=== PATIENT | female | born 1960 | race Caucasian/White ===

== ENCOUNTER 2018-12-08 13:52 | Inpatient (IN) ==
[2018-12-08] MEDS ORDERED: 0.9 % Sodium Chloride 1,000 ML IVC ONE (14:05)
--- NOTE | 2018-12-08 14:09 | Emergency Department Note ---
Disposition Clinical Impression: Anemia Qualifiers: Anemia type: unspecified type Qualified Code(s): D64.9 - Anemia, unspecified Disposition: Admitted As Inpatient Condition: Fair Instructions: Anemia (ED) Referrals: Amanda Andino APN [Primary Care Provider] - Forms: ED Satisfaction Letter SOB HPI - General Chief Complaint: ED Shortness of Breath/Dyspnea Stated Complaint: short of breath, feet swollen Time Seen by Provider: 12/08/18 13:54 Source: EMS Limitations: no limitations Nursing Notes Reviewed: Yes Vital Signs Reviewed: Yes - History of Present Illness 58-year-old female percents emergency department for evaluation of bronchitis and weakness. Patient states she has been feeling weak for the last 2-3 months. Patient states over the last few days she has had cough and congestion. She denies any chest pain. She does have a known history of COPD and uses oxygen at 4 L nasal cannula continuously. She also uses nebulizers at home. She denies any recent melena or hematochezia. She also denies any history of anemia. She states no history of congestive heart failure but she states many family members have it. She has had no urinary symptoms. She said no abdominal pain. - Related Data Home Medications Medication Instructions Recorded Confirmed Unable To Obtain [Unable to Obtain] 12/08/18 12/08/18 Allergies Allergy/AdvReac Type Severity Reaction Status Date / Time Penicillins Allergy Unknown See Verified 12/08/18 15:08 Comments Review of Systems: Constitutional: [Negative for fever and chills.] HENT: [Negative for congestion.] Eyes: [Negative for discharge.] Respiratory: See history of present illness Cardiovascular: [Negative for chest pain.] Gastrointestinal: [Negative for nausea, vomiting, abdominal pain and diarrhea.] Endocrine: [Negative for excessive thirst,urination] Genitourinary: [Negative for dysuria and frequency.] Musculoskeletal: [Negative for myalgias and arthralgias.] Skin: [Negative for rash.] Neurological: [Negative for dizziness, localized weakness and headaches.] Psychiatric/Behavioral: [Negative for nervous/anxious.] All other systems reviewed and are negative. Past Medical History - Past Medical History Attestation: Yes The following information was validated with the patient. 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 HENT: Head: Normocephalic and atraumatic. Right Ear: External ear normal. Left Ear: External ear normal. Nose: Nose normal. Mouth/Throat: Oropharynx is clear and mucous membranes show dehydration Eyes: Conjunctivae and EOM are normal. Pupils are equal, round, and reactive to light. Right eye exhibits [no] discharge. Left eye exhibits [no] discharge. Neck: Trachea is midline, normal range of motion and [phonation normal]. Neck supple. Cardiovascular: [Regular rhythm], S1 normal, S2 normal, normal heart sounds and intact distal pulses. Exam reveals no gallop and no friction rub. No murmur heard. [Capillary refill is brisk.] [Peripheral pulses are 2+] Pulmonary/Chest: Effort [normal] No stridor. [No] tachypnea. [No] respiratory distress. There are decreased breath sounds. There are rhonchi heard in the upper lobes of the lung. There are no obvious Rales. There are no obvious wheezes Abdominal: Soft. [Bowel sounds are normal]. There exhibits [no] distension and [no] mass. There is no hepatosplenomegaly. There is [no tenderness], [no] CVA tenderness. There is [no rigidity, no rebound, no guarding]. Musculoskeletal: Normal range of motion of uninvolved extremities. There exhibits [no edema]. [ ] Neurological: Patient is alert. Patient displays no atrophy and no tremor. Moves all 4 extremities equally without gross deficit. No cranial nerve deficit and exhibits normal muscle tone. Coordination normal grossly. Skin: Skin is warm and dry. No erythema. No rash noted. Psychiatric: Patient has a [normal mood and affect.] Course Course Narrative: Patient was discussed with Dr. Dominguez on-call for hospitalist nicole Arana and is except the patient for admission. We will admit her to an observation bed with follow-up hemoglobin in the morning and further diagnostic evaluation related to her anemia as an outpatient Discussed diagnosis and further treatment plans with patient and family. Questions addressed. Vital Signs Temperature 98.9 F 12/08/18 13:56 Pulse Rate 109 12/08/18 13:56 Respiratory Rate 16 12/08/18 13:56 Blood Pressure 106/64 12/08/18 13:56 O2 Sat by Pulse Oximetry 100 12/08/18 13:56 Temperature 98.9 F 12/08/18 13:56 Pulse Rate 101 12/08/18 15:57 Respiratory Rate 16 12/08/18 15:57 Blood Pressure 91/59 12/08/18 15:57 O2 Sat by Pulse Oximetry 97 12/08/18 15:57 Oxygen Delivery Oxygen Delivery Nasal Cannula Shortness of Breath/Dyspnea - MDM Narrative Medical decision making narrative: Patient's original presentation suggested COPD exacerbation and anemia but other possibilities would also include PULMONARY EMBOLISM, PULMONARY EDEMA, PNEUMONIA, PNEUMOTHORAX, STATUS ASTHMATICUS, ACUTE RESPIRATORY FAILURE, PLEURAL EFFUSION, HEMOTHORAX, OR ACUTE CORONARY SYNDROME. - Lab Data Lab results reviewed: Yes I reviewed the patient's lab results. Result diagrams: 12/08/18 14:10 12/08/18 14:10 Lab Results 12/08/18 12/08/18 12/08/18 Range/Units 14:06 14:10 14:10 WBC 11.6 H (4.3-11.1) K/mcL RBC 2.04 L (3.82-4.97) M/mcL Hgb 5.5 L* (11.5-15.4) g/dL Hct 17.2 L (35.3-44.9) % MCV 84.3 (83.0-100.0) fL MCH 27.0 L (28.0-33.3) pg MCHC 32.0 (31.6-35.5) g/dL RDW 17.2 H (11.5-14.5) % Plt Count 112 L (140-400) K/mcL MPV 11.9 (9.4-12.4) fL Immature Gran % 1.2 (0-4) % Seg Neutrophils % 83.9 % Lymphocytes % 8.4 % Monocytes % 6.4 % Eosinophils % 0.0 % Basophils % 0.1 % Neutrophils # 9.7 H (1.6-8.9) K/mcL Lymphocytes # 1.0 (0.6-4.6) K/mcL Monocytes # 0.7 (0.0-1.3) K/mcL Eosinophils # 0.0 (0.0-0.6) K/mcL Basophils # 0.0 (0.0-0.2) K/mcL Nucleated RBCs/100 WBC 0.4 H (0) /100 WBC PT 15.1 H (9.4-12.1) Seconds INR 1.3 APTT 25.1 L (26.0-36.0) Seconds ABG pH (7.32-7.45) pH Units ABG pCO2 (35-45) mmHg ABG pO2 (85-104) mmHg ABG HCO3 (21-27) mEq/L ABG Total CO2 (20-26) mEq/L ABG O2 Saturation (95-98) % ABG Base Excess (-2 to 3) mEq/L Sodium 127 L (136-145) mEq/L Potassium 3.6 (3.5-5.1) mEq/L Chloride 88 L (98-107) mEq/L Carbon Dioxide 32 H (23-29) mEq/L BUN 13 (6-20) mg/dL Creatinine 0.48 L (0.60-1.20) mg/dL Est GFR ( Amer) > 60 (> 60) Est GFR (Non-Af Amer) > 60 (> 60) BUN/Creatinine Ratio 27 H (6-26) Glucose 113 H (70-105) mg/dL Calculated Osmolality 265 L (280-300) Lactic Acid (0.5-2.2) mmol/L Calcium 8.5 L (8.6-10.3) mg/dL Total Bilirubin 0.4 (0.3-1.0) mg/dL Direct Bilirubin 0.1 (0.0-0.2) mg/dL Indirect Bilirubin 0.3 (0.0-1.2) mg/dL AST 17 (13-39) Units/L ALT 13 (7-52) Units/L Alkaline Phosphatase 151 H (34-104) Units/L Troponin I < 0.03 (< 0.04) ng/mL B-Natriuretic Peptide (Less than 100) pg/mL Serum Total Protein 6.7 (6.4-8.9) g/dL Albumin 2.6 L (3.5-5.7) g/dL Globulin 4.1 H (2.4-3.5) g/dL Albumin/Globulin Ratio 0.6 L (1.1-2.2) Urine Color (Yellow) Urine Clarity (Clear) Urine pH (5.0-8.0) pH Units Ur Specific [place] (1.010-1.025) Urine Protein (Neg-Trace) mg/dL Urine Glucose (UA) (Normal) mg/dL Urine Ketones (Negative) mg/dL Urine Blood (Negative) Urine Nitrite (Negative) Urine Bilirubin (Negative) Urine Urobilinogen (Normal) mg/dL Ur Leukocyte Esterase (Negative) Ur Culture Indicated? (NO) Stool Occult Blood (Negative) Blood Type Antibody Screen Crossmatch 12/08/18 12/08/18 12/08/18 Range/Units 14:10 14:10 14:35 WBC (4.3-11.1) K/mcL RBC (3.82-4.97) M/mcL Hgb (11.5-15.4) g/dL Hct (35.3-44.9) % MCV (83.0-100.0) fL MCH (28.0-33.3) pg MCHC (31.6-35.5) g/dL RDW (11.5-14.5) % Plt Count (140-400) K/mcL MPV (9.4-12.4) fL Immature Gran % (0-4) % Seg Neutrophils % % Lymphocytes % % Monocytes % % Eosinophils % % Basophils % % Neutrophils # (1.6-8.9) K/mcL Lymphocytes # (0.6-4.6) K/mcL Monocytes # (0.0-1.3) K/mcL Eosinophils # (0.0-0.6) K/mcL Basophils # (0.0-0.2) K/mcL Nucleated RBCs/100 WBC (0) /100 WBC PT (9.4-12.1) Seconds INR APTT (26.0-36.0) Seconds ABG pH (7.32-7.45) pH Units ABG pCO2 (35-45) mmHg ABG pO2 (85-104) mmHg ABG HCO3 (21-27) mEq/L ABG Total CO2 (20-26) mEq/L ABG O2 Saturation (95-98) % ABG Base Excess (-2 to 3) mEq/L Sodium (136-145) mEq/L Potassium (3.5-5.1) mEq/L Chloride (98-107) mEq/L Carbon Dioxide (23-29) mEq/L BUN (6-20) mg/dL Creatinine (0.60-1.20) mg/dL Est GFR ( Amer) (> 60) Est GFR (Non-Af Amer) (> 60) BUN/Creatinine Ratio (6-26) Glucose (70-105) mg/dL Calculated Osmolality (280-300) Lactic Acid 1.6 (0.5-2.2) mmol/L Calcium (8.6-10.3) mg/dL Total Bilirubin (0.3-1.0) mg/dL Direct Bilirubin (0.0-0.2) mg/dL Indirect Bilirubin (0.0-1.2) mg/dL AST (13-39) Units/L ALT (7-52) Units/L Alkaline Phosphatase (34-104) Units/L Troponin I (< 0.04) ng/mL B-Natriuretic Peptide 27 (Less than 100) pg/mL Serum Total Protein (6.4-8.9) g/dL Albumin (3.5-5.7) g/dL Globulin (2.4-3.5) g/dL Albumin/Globulin Ratio (1.1-2.2) Urine Color (Yellow) Urine Clarity (Clear) Urine pH (5.0-8.0) pH Units Ur Specific [place] (1.010-1.025) Urine Protein (Neg-Trace) mg/dL Urine Glucose (UA) (Normal) mg/dL Urine Ketones (Negative) mg/dL Urine Blood (Negative) Urine Nitrite (Negative) Urine Bilirubin (Negative) Urine Urobilinogen (Normal) mg/dL Ur Leukocyte Esterase (Negative) Ur Culture Indicated? (NO) Stool Occult Blood (Negative) Blood Type A POSITIVE Antibody Screen NEGATIVE Crossmatch See Detail 12/08/18 12/08/18 12/08/18 Range/Units 14:40 15:28 16:14 WBC (4.3-11.1) K/mcL RBC (3.82-4.97) M/mcL Hgb (11.5-15.4) g/dL Hct (35.3-44.9) % MCV (83.0-100.0) fL MCH (28.0-33.3) pg MCHC (31.6-35.5) g/dL RDW (11.5-14.5) % Plt Count (140-400) K/mcL MPV (9.4-12.4) fL Immature Gran % (0-4) % Seg Neutrophils % % Lymphocytes % % Monocytes % % Eosinophils % % Basophils % % Neutrophils # (1.6-8.9) K/mcL Lymphocytes # (0.6-4.6) K/mcL Monocytes # (0.0-1.3) K/mcL Eosinophils # (0.0-0.6) K/mcL Basophils # (0.0-0.2) K/mcL Nucleated RBCs/100 WBC (0) /100 WBC PT (9.4-12.1) Seconds INR APTT (26.0-36.0) Seconds ABG pH 7.50 H (7.32-7.45) pH Units ABG pCO2 39 (35-45) mmHg ABG pO2 91 (85-104) mmHg ABG HCO3 31 H (21-27) mEq/L ABG Total CO2 32 H (20-26) mEq/L ABG O2 Saturation 98 (95-98) % ABG Base Excess 7 H (-2 to 3) mEq/L Sodium (136-145) mEq/L Potassium (3.5-5.1) mEq/L Chloride (98-107) mEq/L Carbon Dioxide (23-29) mEq/L BUN (6-20) mg/dL Creatinine (0.60-1.20) mg/dL Est GFR ( Amer) (> 60) Est GFR (Non-Af Amer) (> 60) BUN/Creatinine Ratio (6-26) Glucose (70-105) mg/dL Calculated Osmolality (280-300) Lactic Acid (0.5-2.2) mmol/L Calcium (8.6-10.3) mg/dL Total Bilirubin (0.3-1.0) mg/dL Direct Bilirubin (0.0-0.2) mg/dL Indirect Bilirubin (0.0-1.2) mg/dL AST (13-39) Units/L ALT (7-52) Units/L Alkaline Phosphatase (34-104) Units/L Troponin I (< 0.04) ng/mL B-Natriuretic Peptide (Less than 100) pg/mL Serum Total Protein (6.4-8.9) g/dL Albumin (3.5-5.7) g/dL Globulin (2.4-3.5) g/dL Albumin/Globulin Ratio (1.1-2.2) Urine Color Yellow (Yellow) Urine Clarity Clear (Clear) Urine pH 6.0 (5.0-8.0) pH Units Ur Specific [place] 1.015 (1.010-1.025) Urine Protein Negative (Neg-Trace) mg/dL Urine Glucose (UA) Normal (Normal) mg/dL Urine Ketones 40 H (Negative) mg/dL Urine Blood Negative (Negative) Urine Nitrite Negative (Negative) Urine Bilirubin Small H (Negative) Urine Urobilinogen Normal (Normal) mg/dL Ur Leukocyte Esterase Negative (Negative) Ur Culture Indicated? NO (NO) Stool Occult Blood Negative (Negative) Blood Type Antibody Screen Crossmatch - Radiology Data Radiology results reviewed: Yes I reviewed the patient's radiology results. XR/XR chest 1V portable IMPRESSION: No acute cardiopulmonary findings. - EKG Data EKG shows normal: Reports: sinus rhythm, axis, intervals, QRS complexes, ST-T waves Rate: Reports: tachycardia Rhythm: Reports: PAC's Interpretation: Reports: no acute changes
[2018-12-08 14:34] LABS: INR 1.3; Prothrombin Time 15.1 Seconds (9.4-12.1)
[2018-12-08 14:36] LABS: Activated Partial Thrombo Time 25.1 Seconds (26.0-36.0)
[2018-12-08 14:42] LABS: Alanine Aminotransferase 13 Units/L (7-52); Albumin 2.6 g/dL (3.5-5.7); Albumin/Globulin Ratio 0.6 (1.1-2.2); Alkaline Phosphatase 151 Units/L (34-104); Aspartate Amino Transferase 17 Units/L (13-39); BUN/Creatinine Ratio 27 (6-26); Bilirubin,Direct 0.1 mg/dL (0.0-0.2); Bilirubin,Indirect 0.3 mg/dL (0.0-1.2); Bilirubin,Total 0.4 mg/dL (0.3-1.0); Blood Urea Nitrogen 13 mg/dL (6-20); Calcium 8.5 mg/dL (8.6-10.3); Carbon Dioxide 32 mEq/L (23-29); Chloride 88 mEq/L (98-107); Globulin 4.1 g/dL (2.4-3.5); Glucose 113 mg/dL (70-105); Osmolality,Calculated 265 (280-300); Potassium 3.6 mEq/L (3.5-5.1); Sodium 127 mEq/L (136-145); Total Protein 6.7 g/dL (6.4-8.9); eGFR For Non-African Americans > 60 (> 60)
[2018-12-08 14:44] LABS: Basophils % 0.1 %; Hematocrit 17.2 % (35.3-44.9); Immature Granulocytes % 1.2 % (0-4); Lymphocytes % 8.4 %; Mean Corpuscular Volume 84.3 fL (83.0-100.0); Mean Platelet Volume 11.9 fL (9.4-12.4); Monocytes # 0.7 K/mcL (0.0-1.3); Monocytes % 6.4 %; Neutrophils # 9.7 K/mcL (1.6-8.9); Nucleated Red Blood Cells 0.4 /100 WBC (0); Platelet Count 112 K/mcL (140-400); Red Blood Count 2.04 M/mcL (3.82-4.97); Red Cell Distribution Width 17.2 % (11.5-14.5); Segmented Neutrophils % 83.9 %
[2018-12-08 14:45] LABS: Hemoglobin 5.5 g/dL (11.5-15.4); Troponin I < 0.03 ng/mL (< 0.04)
[2018-12-08 14:47] LABS: ABG Base Excess 7 mEq/L (-2 to 3); ABG HCO3 31 mEq/L (21-27); ABG Oxygen Saturation 98 % (95-98); ABG PCO2 39 mmHg (35-45); ABG PO2 91 mmHg (85-104); ABG TCO2 32 mEq/L (20-26)
--- NOTE | 2018-12-08 15:28 | Electrocardiograph Report ---
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
[2018-12-08 15:32] LABS: Bilirubin,Urine Small (Negative); Blood,Urine Negative (Negative); Clarity,Urine Clear (Clear); Color,Urine Yellow (Yellow); Glucose,Urine (UA) Normal (Normal); Ketones,Urine 40 mg/dL (Negative); Leukocyte Esterase,Urine Negative (Negative); Nitrite,Urine Negative (Negative); Protein,Urine Negative (Neg-Trace); Specific Gravity,Urine 1.015 (1.010-1.025); Urobilinogen,Urine Normal (Normal)
[2018-12-08] MEDS ORDERED: 0.9 % Sodium Chloride 250 ML ONE ×2 (16:19→16:32)
[2018-12-08] MEDS ORDERED: Albuterol 2.5 MG/3 ML NEBULIZER IH PRN (16:32)
[2018-12-08] MEDS: Ipratropium/Albuterol Neb 3 ML IH SCH ×2 (19:38→21:39)
[2018-12-08] MEDS: Nicotine 14 MG PATCH.TD24 TD SCH (20:17)
[2018-12-08] MEDS: Acetaminophen 325 MG TABLET PO PRN (20:25)
[2018-12-08] MEDS: 0.9 % Sodium Chloride 1,000 ML IVC SCH (21:35)
[2018-12-08] MEDS: Mirtazapine 15 MG TABLET PO SCH (21:38)
[2018-12-08] MEDS ORDERED: 0.9 % Sodium Chloride 500 ML ONE (23:15)
[2018-12-09] MEDS: Acetaminophen 325 MG TABLET PO PRN ×2 (04:57→17:37)
[2018-12-09] MEDS: Ipratropium/Albuterol Neb 3 ML IH SCH ×4 (04:57→22:44)
[2018-12-09 06:07] LABS: Basophils % 0.1 %; Eosinophils % 0.1 %; Hematocrit 25.5 % (35.3-44.9); Hemoglobin 8.2 g/dL (11.5-15.4); Immature Granulocytes % 1.1 % (0-4); Lymphocytes % 8.5 %; Mean Corpuscular HGB Conc 32.2 g/dL (31.6-35.5); Mean Corpuscular Hemoglobin 26.4 pg (28.0-33.3); Mean Platelet Volume 11.1 fL (9.4-12.4); Monocytes # 0.6 K/mcL (0.0-1.3); Monocytes % 4.6 %; Neutrophils # 10.2 K/mcL (1.6-8.9); Nucleated Red Blood Cells 0.5 /100 WBC (0); Red Blood Count 3.11 M/mcL (3.82-4.97); Red Cell Distribution Width 17.1 % (11.5-14.5); Segmented Neutrophils % 85.6 %
[2018-12-09 06:14] LABS: Immature Reticulocyte % 33.3 % (11.0-38.0); Platelet Count 92 K/mcL (140-400); Retculocyte # 0.1 M/mcL (0.05-0.10); Reticulocyte % 3.3 % (1.6-2.8)
[2018-12-09 06:23] LABS: BUN/Creatinine Ratio 19 (6-26); Blood Urea Nitrogen 8 mg/dL (6-20); Calcium 7.6 mg/dL (8.6-10.3); Carbon Dioxide 31 mEq/L (23-29); Chloride 98 mEq/L (98-107); Glucose 88 mg/dL (70-105); Osmolality,Calculated 272 (280-300); Potassium 3.4 mEq/L (3.5-5.1); Sodium 132 mEq/L (136-145); eGFR For Non-African Americans > 60 (> 60)
[2018-12-09] MEDS ORDERED: *HR* Enoxaparin 30 MG/0.3 ML SYRINGE SQ SCH (07:00)
[2018-12-09] MEDS: Ringers Solution, Lactated 1,000 ML IVC SCH ×2 (07:56→16:23)
[2018-12-09 08:29] LABS: % Iron Saturation 20 % (15-50); Iron 40 mcg/dL (50-170); Transferrin 140 mg/dL (203-362)
[2018-12-09] MEDS: Nicotine 14 MG PATCH.TD24 TD SCH (09:29)
[2018-12-09] MEDS ORDERED: Isovue-370 500 ML BOTTLE IVP ONE ×2 (13:37)
--- NOTE | 2018-12-09 13:42 | Internal Med History&Physical ---
Addendum entered and electronically signed by Yelitza Dominguez 12/11/18 16:48: I have personally performed a face to face evaluation on this patient. I have reviewed and agree with the care plan. Original Note: Date of Encounter: 12/09/18 Time of Encounter: 13:33 Assessment and Plan (1) Anemia Current visit: Yes Status: Acute Patient presents with a complaint of malaise over the past several weeks. Initial hemoglobin found to be at 5.5. Patient was transfused with 2 units of packed RBCs with follow-up hemoglobin at 8.2. Nurse reports positive Hemoccult stool 1. We will continue to follow patient's hemoglobin was serial labs. He should currently continues to have low systolic blood pressure 90-100 and continues on fluid resuscitation. We will obtain a anemia panel for further evaluation Qualifiers: Anemia type: unspecified type Qualified Code(s): D64.9 - Anemia, unspecified (2) COPD (chronic obstructive pulmonary disease) Current visit: Yes Status: Chronic Patient with long history of COPD. Continues to be an active smoker. Patient complaints of productive cough. Initial chest x-ray showed no infectious process. We will continue on current medications and bronchodilators at this time. Patient noted to have a CT scan that was performed approximately one year prior to rule out any malignant diagnosis. Patient currently with approximately weight loss greater than 30 pounds over the past year. Qualifiers: COPD type: unspecified COPD Qualified Code(s): J44.9 - Chronic obstructive pulmonary disease, unspecified (3) Weight loss Current visit: Yes Status: Acute Patient presents with complaints of malaise and states a unexplained weight loss over the past several months. Patient noted to have a CT scan that was performed this time last year to evaluate pulmonary nodules. Patient presents with acute anemia with hemoglobin of 5.5. Patient states that she has had no appetite due to a metallic taste in her mouth. We will obtain a CT scan of the chest abdomen and pelvis with and without contrast. (4) Bipolar 1 disorder Current visit: Yes Status: Acute Patient with a history of bipolar disorder. We will restart patient's home medications but will hold her Remeron. Patient with high doses of Remeron 45 mg with a slight possibility of marrow suppression possibly leading to her acute anemia. We will continue patient on Remeron at 7.5 mg. Patient currently is interacting well with staff with no behavior issues reported. Internal Medicine - H&P: HPI Chief complaint: anemia Admitted From: Home Plans for Post Hospital Care: Home History of present illness: Ms. Fan is a 58 year old female, who presented to emergency department with complaints of malaise and complaints of pulmonary congestion with a cough. Patient also endorses a recent history of unexplained weight loss greater than 30 pounds during the past several months. Initial chest x-ray showed no acute process. Patient was started on antibiotics for possible bronchitis. Initial labs did show a severe anemia with her initial hemoglobin 5.5. Patient was admitted to facility overnight and received 2 units of packed RBCs with her follow-up hemoglobin at 8.2. Since her admission patient's blood pressure has been somewhat low with systolic blood pressure between 90 and 100. Patient continues with fluid resuscitation overnight. Patient currently denies any discomforts Past Med Surg Social Fam HX - Past Medical History Medical history: asthma, COPD, hyperlipidemia, hypertension, thyroid disease Psychiatric history: anxiety, depression - Past Surgical History Surgical History: no surgical history - Social History Smoking Status: Current every day smoker Packs per day: 0.5 Smokeless Tobacco Status: No Alcohol use: none Drug use: none - Family History Mother Family Member Ethnicity: Non- Living Status: Age at : 82 Cause of : CHF Hx Family Cardiac Disorders: Yes Internal Medicine - H&P: Meds Unable To Obtain [Unable to Obtain] 12/08/18 [History] Allergy/AdvReac Type Severity Reaction Status Date / Time Penicillins Allergy Unknown See Verified 12/08/18 15:08 Comments All Systems PM: A 10-system review of systems was performed and is negative for pertinent findings except as documented above in the HPI. - Constitutional Constitutional: as per HPI, no chills, no fever(s), no night sweats - EENT Eyes: as per HPI, no change in vision, no discharge, no pain, no photophobia Ears: no ear discharge, no ear pain, no tinnitus Nose, mouth and throat: as per HPI, no dysphagia, no nasal discharge, no neck pain, no sore throat - Cardiovascular Cardiovascular ROS IM: as per HPI, no chest pain, no diaphoresis, no dyspnea, no lightheadedness, no palpitations, no syncope - Respiratory Respiratory: as per HPI, no cough, no dyspnea, no wheezing, no excessive phlegm production - Gastrointestinal Gastrointestinal: as per HPI, no abdominal pain, no diarrhea, no hematemesis, no hematochezia, no melena, no nausea, no vomiting - Genitourinary Genitourinary: as per HPI, no change in urinary stream, no dysuria, no flank pain, no hematuria - Musculoskeletal Musculoskeletal ROS IM: as per HPI, no numbness, no tingling - Integumentary Integumentary IM: as per HPI, no rash, no unusual bruising - Neurological Neurological ROS: as per HPI, no confusion, no convulsions, no focal weakness, no numbness, no tingling, no tremor(s) - Hematologic/Lymphatic Hematologic/Lymphatic: no easy bruising - Constitutional Vitals: Temp Pulse Resp BP Pulse Ox 97.9 F 102 14 92/59 100 12/09/18 11:13 12/09/18 11:13 12/09/18 11:13 12/09/18 11:13 12/09/18 11:13 General appearance: Present: A&O X 3, pleasant, loss of weight Exam: Patient has a slightly cachectic-type appearance with noted muscle wasting - Head Head exam: Present: atraumatic, normocephalic - Eye Eye exam: Present: PERRL, conjuntiva pink, sclera anicteric Pupils: Present: PERRL - Neck Neck exam general surgery: Present: supple, trachea midline. Absent: lymphadenopathy - Respiratory Respiratory exam: Present: CTAB. Absent: accessory muscle use, rales, rhonchi, wheezes - Cardiovascular Cardiovascular exam: Present: RRR, +S1, +S2. Absent: diastolic murmur, gallop, rubs, systolic murmur - GI/Abdominal GI/Abdominal exam: Present: normal bowel sounds, soft, no peritoneal signs. Absent: distended, tenderness - Extremities Exam Extremities exam: Present: warm, radial pulses palpable and symmetrical. Absent: calf tenderness, cyanotic, pedal edema - Neurological Exam Neurological exam: Present: CN II-XII intact, oriented X3, no focal deficits. Absent: pronater drift, facial droop, speech deficit - Skin Skin exam: Present: dry, intact Internal Med - H&P Results - Labs CBC & Chem 7: 12/09/18 04:30 12/09/18 04:30 Labs: Short CBC 12/08/18 12/09/18 Range/Units 14:10 04:30 WBC 11.6 H 11.9 H (4.3-11.1) K/mcL Hgb 5.5 L* 8.2 L D (11.5-15.4) g/dL Hct 17.2 L 25.5 L (35.3-44.9) % Plt Count 112 L 92 L (140-400) K/mcL Neutrophils # 9.7 H 10.2 H (1.6-8.9) K/mcL BMP 12/08/18 12/09/18 14:10 04:30 Sodium 127 L 132 L Potassium 3.6 3.4 L Chloride 88 L 98 Carbon Dioxide 32 H 31 H BUN 13 8 Creatinine 0.48 L 0.43 L Glucose 113 H 88 Calcium 8.5 L 7.6 L Cardiac Enzymes 12/08/18 Range/Units 14:10 Troponin I < 0.03 (< 0.04) ng/mL Liver Function 12/08/18 Range/Units 14:10 Total Bilirubin 0.4 (0.3-1.0) mg/dL Direct Bilirubin 0.1 (0.0-0.2) mg/dL AST 17 (13-39) Units/L ALT 13 (7-52) Units/L Alkaline Phosphatase 151 H (34-104) Units/L Albumin 2.6 L (3.5-5.7) g/dL Urine 12/08/18 Range/Units 15:28 Urine Color Yellow (Yellow) Urine Clarity Clear (Clear) Urine pH 6.0 (5.0-8.0) pH Units Ur Specific [place] 1.015 (1.010-1.025) Urine Protein Negative (Neg-Trace) mg/dL Urine Glucose (UA) Normal (Normal) mg/dL - ABG Interpretation ABG results: 12/08/18 14:40 ABG pH 7.50 H ABG pCO2 39 ABG pO2 91 ABG HCO3 31 H ABG Total CO2 32 H ABG O2 Saturation 98 ABG Base Excess 7 H - Impressions ITS Impressions Chest X-Ray 12/08/18 14:05 IMPRESSION: No acute cardiopulmonary findings. D/ / Karine Mccray MD / Karine Mccray MD Interpreting Provider: Karine Mccray MD
[2018-12-09] MEDS: clonazePAM 0.5 MG TABLET PO PRN (17:37)
[2018-12-09] MEDS: Gabapentin 100 MG CAPSULE PO SCH (22:41)
[2018-12-09] MEDS: ARIPiprazole 5 MG TABLET PO SCH (22:43)
[2018-12-09] MEDS: Mirtazapine 15 MG TABLET PO SCH (22:43)
[2018-12-10] MEDS: Ringers Solution, Lactated 1,000 ML IVC SCH ×3 (01:37→20:42)
[2018-12-10 05:27] LABS: Basophils % 0.1 %; Eosinophils % 0.1 %; Hematocrit 23.5 % (35.3-44.9); Hemoglobin 7.6 g/dL (11.5-15.4); Immature Granulocytes % 1.5 % (0-4); Lymphocytes # 0.9 K/mcL (0.6-4.6); Lymphocytes % 5.1 %; Mean Corpuscular HGB Conc 32.3 g/dL (31.6-35.5); Mean Corpuscular Hemoglobin 26.3 pg (28.0-33.3); Mean Corpuscular Volume 81.3 fL (83.0-100.0); Mean Platelet Volume 10.3 fL (9.4-12.4); Monocytes # 0.6 K/mcL (0.0-1.3); Monocytes % 3.2 %; Nucleated Red Blood Cells 0.2 /100 WBC (0); Red Blood Count 2.89 M/mcL (3.82-4.97); Red Cell Distribution Width 17.5 % (11.5-14.5)
[2018-12-10] MEDS: Acetaminophen 325 MG TABLET PO PRN ×3 (05:40→20:46)
[2018-12-10] MEDS: Ipratropium/Albuterol Neb 3 ML IH SCH ×4 (05:40→20:46)
[2018-12-10 05:48] LABS: Platelet Count 66 K/mcL (140-400)
[2018-12-10 05:54] LABS: Hypochromasia Present (Not Present); Platelet Estimate Decreased (Normal)
[2018-12-10 05:55] LABS: Microcytosis Present (Not Present); Ovalocytes 1+ (Not Present)
[2018-12-10 05:57] LABS: Thyroid Stimulating Hormone 2.262 mcIU/mL (0.340-5.600)
[2018-12-10] MEDS ORDERED: *HR* Enoxaparin 60 MG/0.6 ML SYRINGE SQ SCH (06:00)
[2018-12-10] MEDS: Folic Acid 1 MG TABLET PO SCH (09:51)
[2018-12-10] MEDS: Nicotine 14 MG PATCH.TD24 TD SCH (09:51)
[2018-12-10] MEDS: clonazePAM 0.5 MG TABLET PO PRN (14:57)
[2018-12-10 16:10] LABS: Basophils % 0.1 %; Hemoglobin 7.1 g/dL (11.5-15.4); Immature Granulocytes % 2.4 % (0-4); Lymphocytes # 1.2 K/mcL (0.6-4.6); Lymphocytes % 5.8 %; Mean Corpuscular HGB Conc 32.3 g/dL (31.6-35.5); Mean Corpuscular Hemoglobin 26.5 pg (28.0-33.3); Mean Corpuscular Volume 82.1 fL (83.0-100.0); Monocytes # 0.7 K/mcL (0.0-1.3); Monocytes % 3.3 %; Neutrophils # 18.9 K/mcL (1.6-8.9); Red Blood Count 2.68 M/mcL (3.82-4.97); Red Cell Distribution Width 17.6 % (11.5-14.5); Segmented Neutrophils % 88.4 %
[2018-12-10 16:12] LABS: Platelet Count 73 K/mcL (140-400)
[2018-12-10 17:57] LABS: Bilirubin,Urine Negative (Negative); Blood,Urine Negative (Negative); Clarity,Urine Clear (Clear); Color,Urine Yellow (Yellow); Glucose,Urine (UA) Normal (Normal); Ketones,Urine Negative (Negative); Leukocyte Esterase,Urine Negative (Negative); Nitrite,Urine Negative (Negative); Protein,Urine Negative (Neg-Trace); Urobilinogen,Urine Normal (Normal)
[2018-12-10] MEDS: ARIPiprazole 5 MG TABLET PO SCH (20:44)
[2018-12-10] MEDS: Gabapentin 100 MG CAPSULE PO SCH (20:46)
[2018-12-10 21:01] LABS: Basophils % 0.1 %; Hematocrit 22.4 % (35.3-44.9); Hemoglobin 7.3 g/dL (11.5-15.4); Immature Granulocytes % 2.1 % (0-4); Lymphocytes # 0.9 K/mcL (0.6-4.6); Lymphocytes % 4.2 %; Mean Corpuscular HGB Conc 32.6 g/dL (31.6-35.5); Mean Corpuscular Hemoglobin 26.7 pg (28.0-33.3); Mean Corpuscular Volume 82.1 fL (83.0-100.0); Mean Platelet Volume 10.5 fL (9.4-12.4); Monocytes # 0.6 K/mcL (0.0-1.3); Neutrophils # 19.2 K/mcL (1.6-8.9); Nucleated Red Blood Cells 0.1 /100 WBC (0); Red Blood Count 2.73 M/mcL (3.82-4.97); Red Cell Distribution Width 17.8 % (11.5-14.5); Segmented Neutrophils % 90.6 %
[2018-12-10 21:04] LABS: Platelet Count 74 K/mcL (140-400)
[2018-12-11] MEDS: Ringers Solution, Lactated 1,000 ML IVC SCH ×3 (04:50→21:18)
[2018-12-11] MEDS: Acetaminophen 325 MG TABLET PO PRN ×2 (04:52→21:22)
[2018-12-11] MEDS: Ipratropium/Albuterol Neb 3 ML IH SCH ×4 (04:52→21:13)
[2018-12-11 04:58] LABS: Basophils % 0.1 %; Eosinophils % 0.1 %; Hematocrit 22.7 % (35.3-44.9); Hemoglobin 7.5 g/dL (11.5-15.4); Immature Granulocytes % 3.3 % (0-4); Lymphocytes # 0.9 K/mcL (0.6-4.6); Lymphocytes % 3.9 %; Mean Corpuscular Volume 81.7 fL (83.0-100.0); Mean Platelet Volume 10.9 fL (9.4-12.4); Monocytes # 0.7 K/mcL (0.0-1.3); Monocytes % 2.9 %; Neutrophils # 20.3 K/mcL (1.6-8.9); Nucleated Red Blood Cells 0.1 /100 WBC (0); Red Blood Count 2.78 M/mcL (3.82-4.97); Red Cell Distribution Width 17.6 % (11.5-14.5); Segmented Neutrophils % 89.7 %
[2018-12-11 04:59] LABS: Platelet Count 71 K/mcL (140-400)
[2018-12-11] MEDS: Nicotine 14 MG PATCH.TD24 TD SCH (08:11)
[2018-12-11] MEDS: Folic Acid 1 MG TABLET PO SCH (08:11)
[2018-12-11] MEDS: clonazePAM 0.5 MG TABLET PO PRN ×2 (16:27→21:22)
--- NOTE | 2018-12-11 17:20 | Internal Med Progress Note ---
Date of Encounter: 12/10/18 Time of Encounter: 14:20 - Subjective Interval history: Assessment and Plan (1) Anemia Current visit: Yes Status: Acute Patient presents with a complaint of malaise weakness and sob on exertion over the last 3 months. She denies bleeding or any acute events. Denies melana. Denies hemoptysis. Says she lives alone and felt too tired. Says she also has had poor appetite for about 6 months. Says she has lost about 30 lb unintentionally. Says she has been trying to eat, mostly things convenient like jello or microwave mac n cheese Initial hemoglobin found to be at 5.5 in ED. Her Retic count was low. Patient was transfused with 2 units of packed RBCs with follow-up hemoglobin at 8.2. HER CT abd and chest showed multiple abnormalities including suggestion of mult PE. She has not had respiratory distress and her abg in ed was ok. She was started on therapeutic lovenox. Her HB dropped to 7.1. Her platelets are low and INR mild elevated. So lovenox was DC Her respiratory status remains stable. . Her systolic BP since admission has continued systolic blood pressure 90-100 and continues on lactated ringers maintenance as her oral intake is poor. Qualifiers: Anemia type: unspecified type Qualified Code(s): D64.9 - Anemia, unspecified (2) COPD (chronic obstructive pulmonary disease) Current visit: Yes Status: Chronic Patient with long history of COPD. Continues to be an active smoker. Pt advised to stop smoking and use nicotine patch. She reports she has smoked since age 12 when her older sister gave her cigarrettes. Patient says today no cough no cp. Initial chest x-ray showed no infectious process. We will continue on current medications and bronchodilators at this time. Patient noted to have a CT scan of chest from DEC 2017 this result reported ground glass abnormalities in left upper lung. Qualifiers: COPD type: unspecified COPD Qualified Code(s): J44.9 - Chronic obstructive pulmonary disease, unspecified (3) Weight loss Current visit: Yes Status: Acute Patient presents with complaints of malaise and states a unexplained weight loss over the past 6 months states about 30 lb. She says food does not taste good. No choking no vomiting. Says did not note change in bm. as above did have CT scan that was performed this time last year to evaluate pulmonary nodules. Patient presents with acute anemia with hemoglobin of 5.5. Patient states that she has had no appetite due to a metallic taste in her mouth. She says she ususally does not go to the doctor and that she does see psychology when needed. (4) Bipolar 1 disorder Current visit: Yes Status: Acute Patient with a history of bipolar disorder. She says worse since her second daughter in 2008 pt says she thinks she was killed. Pt has been on high dose remeron. We will restart patient's home medications but will hold her Remeron. Patient with high doses of Remeron 45 mg with a slight possibility of marrow suppression possibly contributing to her acute anemia and low platelet count and low retic count. DC Remeron consider reducing abilify and paxil (5) ascites and possible carcinomatosis multiple abnormalities on CT abd and chest - see reports - possible changes in gallbladder CT results discussed in detail with patient. Questions answered. Advised pt that etiology is unclear and she needs aggressive further evaluation discussed possible biopsy options and /or possible US guided paracentesis. Pt says she is easily made anxious by procedures - says she did not even like getting abg. Discussed importance. PT will consider her options. INTERVAL HISTORY PT remains weak and feels very fatigued. She denies bleeding. EXAM General appearance: Present: A&O X 3, pleasant, cachectic Exam: Patient with noted muscle wasting - Head Head exam: Present: atraumatic, normocephalic - Eye Eye exam: Present: PERRL, conjuntiva pink, sclera anicteric Pupils: Present: PERRL - Neck Neck exam general surgery: Present: supple, trachea midline. Absent: lymphadenopathy - Respiratory Respiratory exam: Present: CTAB. Absent: accessory muscle use, rales, rhonchi, wheezes - Cardiovascular Cardiovascular exam: Present: RRR, +S1, +S2. Absent: diastolic murmur, gallop, rubs, systolic murmur - GI/Abdominal GI/Abdominal exam: Present: normal bowel sounds, soft, no peritoneal signs. mild distended and full - Extremities Exam Extremities exam: Present: warm, radial pulses palpable and symmetrical. Absent: calf tenderness, cyanotic, pedal edema - Neurological Exam Neurological exam: Present: CN II-XII intact, oriented X3, no focal deficits. Absent: pronater drift, facial droop, speech deficit - Skin Skin exam: Present: dry, intact - Constitutional Vitals: Temp Pulse Resp BP Pulse Ox 97.0 F L 107 14 80/59 95 12/11/18 12:00 12/11/18 12:00 12/11/18 12:00 12/11/18 12:00 12/11/18 12:00 General appearance: Present: A&O X 3, pleasant, loss of weight Internal Medicine: Result - Labs CBC & Chem 7: 12/11/18 04:50 12/09/18 04:30 Labs: Short CBC 12/10/18 12/11/18 Range/Units 20:55 04:50 WBC 21.2 H 22.6 H (4.3-11.1) K/mcL Hgb 7.3 L 7.5 L (11.5-15.4) g/dL Hct 22.4 L 22.7 L (35.3-44.9) % Plt Count 74 L 71 L (140-400) K/mcL Neutrophils # 19.2 H 20.3 H (1.6-8.9) K/mcL Urine 12/10/18 Range/Units 17:50 Urine Color Yellow (Yellow) Urine Clarity Clear (Clear) Urine pH 7.0 (5.0-8.0) pH Units Ur Specific [place] 1.010 (1.010-1.025) Urine Protein Negative (Neg-Trace) mg/dL Urine Glucose (UA) Normal (Normal) mg/dL - ABG Interpretation ABG results: ABG ABG pH 7.50 pH Units (7.32-7.45) H 12/08/18 14:40 ABG pCO2 39 mmHg (35-45) 12/08/18 14:40 ABG pO2 91 mmHg (85-104) 12/08/18 14:40 ABG O2 Saturation 98 % (95-98) 12/08/18 14:40 PT/INR, D-dimer PT 15.1 Seconds (9.4-12.1) H 12/08/18 14:06 Consult Discharge Plan - Plan Referrals: Amanda Andino APN [Primary Care Provider] -
[2018-12-11 17:21] LABS: INR 1.4; Prothrombin Time 15.7 Seconds (9.4-12.1)
[2018-12-11 17:24] LABS: Activated Partial Thrombo Time 35.2 Seconds (26.0-36.0)
[2018-12-11 17:33] LABS: Alanine Aminotransferase 7 Units/L (7-52); Albumin 1.6 g/dL (3.5-5.7); Albumin/Globulin Ratio 0.6 (1.1-2.2); Alkaline Phosphatase 110 Units/L (34-104); Aspartate Amino Transferase 14 Units/L (13-39); BUN/Creatinine Ratio 22 (6-26); Bilirubin,Total 0.4 mg/dL (0.3-1.0); Blood Urea Nitrogen 6 mg/dL (6-20); Calcium 7.4 mg/dL (8.6-10.3); Carbon Dioxide 25 mEq/L (23-29); Chloride 98 mEq/L (98-107); Globulin 2.8 g/dL (2.4-3.5); Glucose 95 mg/dL (70-105); Osmolality,Calculated 261 (280-300); Potassium 3.6 mEq/L (3.5-5.1); Sodium 127 mEq/L (136-145); Total Protein 4.4 g/dL (6.4-8.9); eGFR For Non-African Americans > 60 (> 60)
--- NOTE | 2018-12-11 17:40 | Internal Med Progress Note ---
Date of Encounter: 12/11/18 Time of Encounter: 15:20 - Subjective Interval history: Assessment and Plan (1) Anemia Current visit: Yes Status: Acute Patient presents with a complaint of malaise weakness and sob on exertion over the last 3 months. She denies bleeding or any acute events. Denies melana. Denies hemoptysis. Says she lives alone and felt too tired. Says she also has had poor appetite for about 6 months. Says she has lost about 30 lb unintentionally. Says she has been trying to eat, mostly things convenient like jello or microwave mac n cheese Initial hemoglobin found to be at 5.5 in ED. Her Retic count was low. Patient was transfused with 2 units of packed RBCs with follow-up hemoglobin at 8.2. HER CT abd and chest showed multiple abnormalities including suggestion of mult PE. She has not had respiratory distress and her abg in ed was ok. She was started on therapeutic lovenox. Her HB dropped to 7.1. Her platelets are low and INR mild elevated. So lovenox was DC Hb has improved some again today Her respiratory status remains stable. . Her systolic BP since admission has continued systolic blood pressure 90-100 and continues on lactated ringers maintenance as her oral intake is poor. Will recheck InR and PTT Will recheck and follow complete chemistry Qualifiers: Anemia type: unspecified type Qualified Code(s): D64.9 - Anemia, unspecified (2) COPD (chronic obstructive pulmonary disease) Current visit: Yes Status: Chronic Patient with long history of COPD. Continues to be an active smoker. Pt advised to stop smoking and use nicotine patch. She reports she has smoked si nce age 12 when her older sister gave her cigarettes. Patient says today no cough no cp. Initial chest x-ray showed no infectious process. We will continue on current medications and bronchodilators at this time. Patient noted to have a CT scan of chest from DEC 2017 this result reported ground glass abnormalities in left upper lung. Current CT shows more widespread abnormalities and also suggestion of multiple pe. Pt is asymptomatic from that and had drop in blood count on lovenox will only use mobility and arleen hose Qualifiers: COPD type: unspecified COPD Qualified Code(s): J44.9 - Chronic obstructive pulmonary disease, unspecified (3) Weight loss Current visit: Yes Status: Acute Patient presents with complaints of malaise and states a unexplained weight loss over the past 6 months states about 30 lb. She says food does not taste good. No choking no vomiting. Says did not note change in bm. as above did have CT scan that was performed this time last year to evaluate pulmonary nodules. Patient presents with acute anemia with hemoglobin of 5.5. Patient states that she has had no appetite due to a metallic taste in her mouth. She says she ususally does not go to the doctor and that she does see psychology when needed. (4) Bipolar 1 disorder Current visit: Yes Status: Acute Patient with a history of bipolar disorder. She says worse since her second daughter in 2008 pt says she thinks she was killed. Pt has been on high dose remeron. We will restart patient's home medications but will hold her Remeron. PT says her mood is stable no SI. Remeron has possible side effect of marrow suppression possibly contributing to her acute anemia and low platelet count and low retic count. did DC Remeron will reduce abilify from 5 mg to 2 mg and and reduce 40 mg paxil to 20 mg (5) ascites and possible carcinomatosis multiple abnormalities on CT abd and chest - see reports - possible changes in gallbladder and multiple areas. CT results discussed in detail with patient. Questions answered. Advised pt that etiology is unclear and she needs aggressive further evaluation discussed possible biopsy options and /or possible US guided paracentesis. Pt says she is easily made anxious by procedures . Discussed importance. PT will consider her options. Discussed specialist input Pt may need interventional radiology. Will place Heme Onc Consult. INTERVAL HISTORY PT remains weak and feels very fatigued. She states no appetite and metal taste in mouth. No chest pain no active bleeding. Hb slight improved today but platelets mild trend down. Denies problems off of the remeron reports she has never had any kind of surgery in past , says she has never been hospitalized that she remembers EXAM General appearance: Present: A&O X 3, pleasant, cachectic Exam: Patient with noted muscle wasting - Head Head exam: Present: atraumatic, normocephalic - Eye Eye exam: Present: PERRL, conjuntiva pink, sclera anicteric Pupils: Present: PERRL - Neck Neck exam general surgery: Present: supple, trachea midline. Absent: lymphadenopathy - Respiratory Respiratory exam: Present: CTAB. Absent: accessory muscle use, rales, rhonchi, wheezes - Cardiovascular Cardiovascular exam: Present: RRR, +S1, +S2. Absent: diastolic murmur, gallop, rubs, systolic murmur - GI/Abdominal GI/Abdominal exam: Present: normal bowel sounds, soft, no peritoneal signs. mild distended and full - Extremities Exam Extremities exam: Present: warm, radial pulses palpable and symmetrical. Absent: calf tenderness, cyanotic, pedal edema - Neurological Exam Neurological exam: Present: CN II-XII intact, oriented X3, no focal deficits. Absent: pronater drift, facial droop, speech deficit - Skin Skin exam: Present: dry, intact - Constitutional Vitals: Temp Pulse Resp BP Pulse Ox 97.0 F L 107 14 80/59 95 12/11/18 12:00 12/11/18 12:00 12/11/18 12:00 12/11/18 12:00 12/11/18 12:00 General appearance: Present: A&O X 3, pleasant, loss of weight Internal Medicine: Result - Labs CBC & Chem 7: 12/11/18 04:50 12/09/18 04:30 Labs: Short CBC 12/10/18 12/11/18 Range/Units 20:55 04:50 WBC 21.2 H 22.6 H (4.3-11.1) K/mcL Hgb 7.3 L 7.5 L (11.5-15.4) g/dL Hct 22.4 L 22.7 L (35.3-44.9) % Plt Count 74 L 71 L (140-400) K/mcL Neutrophils # 19.2 H 20.3 H (1.6-8.9) K/mcL Urine 12/10/18 Range/Units 17:50 Urine Color Yellow (Yellow) Urine Clarity Clear (Clear) Urine pH 7.0 (5.0-8.0) pH Units Ur Specific [place] 1.010 (1.010-1.025) Urine Protein Negative (Neg-Trace) mg/dL Urine Glucose (UA) Normal (Normal) mg/dL - ABG Interpretation ABG results: ABG ABG pH 7.50 pH Units (7.32-7.45) H 12/08/18 14:40 ABG pCO2 39 mmHg (35-45) 12/08/18 14:40 ABG pO2 91 mmHg (85-104) 12/08/18 14:40 ABG O2 Saturation 98 % (95-98) 12/08/18 14:40 PT/INR, D-dimer PT 15.7 Seconds (9.4-12.1) H 12/11/18 17:10 Consult Discharge Plan - Plan Referrals: Amanda Andino APN [Primary Care Provider] -
[2018-12-11] MEDS ORDERED: ARIPiprazole 2 MG TABLET PO SCH (21:00)
[2018-12-12] MEDS: Ipratropium/Albuterol Neb 3 ML IH SCH ×2 (03:52→10:08)
[2018-12-12] MEDS: Acetaminophen 325 MG TABLET PO PRN ×2 (04:05→11:00)
[2018-12-12] MEDS: Ringers Solution, Lactated 1,000 ML IVC SCH ×2 (05:38→14:09)
[2018-12-12 06:19] LABS: Basophils % 0.1 %; Hematocrit 22.8 % (35.3-44.9); Hemoglobin 7.4 g/dL (11.5-15.4); Immature Granulocytes % 5.5 % (0-4); Lymphocytes # 0.7 K/mcL (0.6-4.6); Lymphocytes % 3.5 %; Mean Corpuscular HGB Conc 32.5 g/dL (31.6-35.5); Mean Corpuscular Hemoglobin 26.5 pg (28.0-33.3); Mean Corpuscular Volume 81.7 fL (83.0-100.0); Monocytes # 0.7 K/mcL (0.0-1.3); Monocytes % 3.4 %; Neutrophils # 17.6 K/mcL (1.6-8.9); Nucleated Red Blood Cells 0.1 /100 WBC (0); Red Blood Count 2.79 M/mcL (3.82-4.97); Red Cell Distribution Width 18.2 % (11.5-14.5); Segmented Neutrophils % 87.5 %
[2018-12-12 06:34] LABS: Alanine Aminotransferase 7 Units/L (7-52); Albumin 1.6 g/dL (3.5-5.7); Albumin/Globulin Ratio 0.5 (1.1-2.2); Alkaline Phosphatase 126 Units/L (34-104); Aspartate Amino Transferase 15 Units/L (13-39); BUN/Creatinine Ratio 19 (6-26); Bilirubin,Total 0.5 mg/dL (0.3-1.0); Blood Urea Nitrogen 6 mg/dL (6-20); Calcium 7.7 mg/dL (8.6-10.3); Carbon Dioxide 27 mEq/L (23-29); Chloride 101 mEq/L (98-107); Glucose 87 mg/dL (70-105); Osmolality,Calculated 269 (280-300); Potassium 3.8 mEq/L (3.5-5.1); Sodium 131 mEq/L (136-145); Total Protein 4.6 g/dL (6.4-8.9); eGFR For Non-African Americans > 60 (> 60)
[2018-12-12 06:41] LABS: Platelet Count 87 K/mcL (140-400)
[2018-12-12 06:45] LABS: Anisocytosis 1+ (Not Present); Hypochromasia Present (Not Present)
[2018-12-12 06:46] LABS: Platelet Estimate Slight Decrease (Normal); Poikilocytosis 1+ (Not Present); Target Cells 1+ (Not Present)
[2018-12-12] MEDS: Nicotine 14 MG PATCH.TD24 TD SCH (11:00)
[2018-12-12] MEDS: clonazePAM 0.5 MG TABLET PO PRN (11:00)
[2018-12-12] MEDS: Folic Acid 1 MG TABLET PO SCH (11:00)
[2018-12-12] MEDS ORDERED: *HR* Heparin 5,000 UNIT/ML VIAL IVP PRN (13:08)
[2018-12-12] MEDS ORDERED: *HR* Heparin 5,000 UNIT/ML VIAL IVP ONE (13:08)
[2018-12-12] MEDS ORDERED: Heparin 25,000 UNIT/500 ML D5W 25,000 UNIT/500 ML BAG IVC SCH (13:15)
[2018-12-12 13:47] LABS: Hematocrit 22.3 % (35.3-44.9); Hemoglobin 7.2 g/dL (11.5-15.4); Mean Corpuscular HGB Conc 32.3 g/dL (31.6-35.5); Mean Corpuscular Hemoglobin 26.3 pg (28.0-33.3); Mean Corpuscular Volume 81.4 fL (83.0-100.0); Mean Platelet Volume 10.7 fL (9.4-12.4); Platelet Count 81 K/mcL (140-400); Red Blood Count 2.74 M/mcL (3.82-4.97)
[2018-12-12 13:55] LABS: Heparin anti-factor XA UFH 0.05 IU/mL (0.30-0.70)
[2018-12-12 13:56] LABS: INR 1.3; Prothrombin Time 14.6 Seconds (9.4-12.1)
[2018-12-12] MEDS: 0.9 % Sodium Chloride 1,000 ML IVC SCH (14:13)
--- NOTE | 2018-12-12 15:17 | Discharge Summary ---
Addendum entered and electronically signed by Tab Campos MD 12/12/18 15:43: I have personally performed a face to face evaluation on this patient. I have r eviewed and agree with the care plan. History and Exam by me shows: My greatest concern is for pulmonary embolus which is not being treated. A late afternoon Doppler shows diffuse bilateral blood clots and she is at risk for more pulmonary embolus or fatal PE from this. Because of her thrombocytopenia she has not been anticoagulated and we decided that she needs further evaluation before being treated with IV heparin. I spoke with Dr. Friend who will evaluate the patient and consider filter placement. I also reiterated concerns about carcinomatosis and the fact that she needs hematology evaluation and for pulmonary evaluation. I explained this to patient and she accepts transfer and need for further testing and/or procedures. I reiterated her weight loss and he had seen her CT scan results prior to our call. I tried to reach her daughter but was unable after multiple attempts. Discussed care with other providers and/or nursing. Patient has no complaint of chest discomfort, dyspnea, orthopnea, palpitations, nausea or vomiting, constipation or diarrhea, other changes in bowel habits, difficulty with urination, rash or itching, or other new complaints, except as mentioned above. Review of systems is otherwise negative. Examination: (Except as mentioned above): General: In no apparent distress. Alert and oriented 3. Nondiaphoretic. Head: Atraumatic and normocephalic. Respiratory: No use of accessory muscles. Lungs are clear throughou with the exception of diffuse sonorous rhonchi t. Normal airflow seems otherwise fine. Cardiovascular: Regular rate and rhythm without murmur appreciated. Abdomen: Bowel sounds are normal. No hepatosplenomegaly or mass but the right upper quadrant exam was somewhat limited by moderate tenderness without guarding that was involuntary and no rebound. Obese and therefore difficult to palpate deeply. Extremities: No cyanosis clubbing or edema. Skin: Warm and non-diaphoretic with no new lesions noted. Original Note: Orders not resulted at time of discharge: Pending orders 12/12/18 13:11 Occult Blood,Stool [BF] Routine 12/12/18 14:38 Venous Doppler [EV venous imaging LE BI] Routine 12/13/18 04:00 CBC [Complete Blood Count] [HEME] AM 0400 Chem 13 [Comprehensive Metabolic Panel] AM 0400 Complete Blood Count [HEME] AM 0400 12/14/18 04:00 Chem 13 [Comprehensive Metabolic Panel] AM 0400 Complete Blood Count [HEME] AM 0400 12/15/18 04:00 Chem 13 [Comprehensive Metabolic Panel] AM 0400 Complete Blood Count [HEME] AM 0400 12/16/18 04:00 Chem 13 [Comprehensive Metabolic Panel] AM 0400 Complete Blood Count [HEME] AM 0400 Date of Encounter: 12/12/18 Time of Encounter: 15:15 - Discharge Diagnosis (1) Anemia Priority: Primary Status: Acute Comments: Patient had presented to emergency department with complaints of generalized weakness over the past several months. Initial labs show a hemoglobin of 5.5. Patient was admitted for further workup and received 2 units of packed RBCs. Signs of obvious bleeding were noted during her stay. Patient's last hemoglobin has remained at 7.2. Qualifiers: Anemia type: unspecified type Qualified Code(s): D64.9 - Anemia, unspecified (2) COPD (chronic obstructive pulmonary disease) Priority: Secondary Status: Chronic Comments: Patient has had complaints of shortness of breath when presenting to emergency department. Initial chest x-ray showed no acute infectious process. Patient was complaining of productive cough with a thick green sputum received. Patient has remained afebrile. Currently lungs are clear throughout. Continue with current medications. Qualifiers: COPD type: unspecified COPD Qualified Code(s): J44.9 - Chronic obstructive pulmonary disease, unspecified (3) Weight loss Priority: Secondary Status: Acute Comments: Patient has had a complaint of a unexplained weight loss rate and 30 pounds over the past several months. Noted to have a CT of the chest that was performed approximately one year ago with suspicions of malignancies. CT was repeated of the chest and abdomen with result showing possibility of multiple PEs and continued pulmonary nodules. Patient showed multiple cysts suspicious nodules to the liver and pelvic area. Patient to be transferred to [place] for further evaluation and management (4) Bipolar 1 disorder Priority: Secondary Status: Acute Comments: No acute issues during her stay. No behavior issues reported. Hospital course: Ms. Fan is a 58 year old female who was admitted to this facility for complaints of generalized weakness and shortness of breath. On admission patient was found to have a hemoglobin of 5.5 and received transfusion of 2 units. Patient continues with anemia but her hemoglobin has remained stable greater than 7. Patient is remain asymptomatic to low hemoglobin with no further complaints of dyspnea and vital signs being stable. Patient had complaints of shortness of breath during admission but no infectious processes noted during chest x-ray. Patient states her dyspnea has resolved over the past 2 days. Patient stated a history of unexplained weight loss of greater than 30 pounds over the past several months. Patient had a CT scan of the chest and abdomen which shows possible bilateral PEs and showed multiple nodules to the lungs with possible metastatic disease to the liver and pelvic area. Patient is being transferred to [place] for further evaluation and treatment. Discharge discussed with: patient Time spent discussing smoking cessation with patient: 3 to 10 minutes - Time Spent with Patient Total time spent providing and/or coordinating discharge services: Less than 30 minutes - Discharge Medications Home Medications: Unable To Obtain [Unable to Obtain] 12/08/18 [History] Allergies/Adverse Reactions: Allergy/AdvReac Type Severity Reaction Status Date / Time Penicillins Allergy Unknown See Verified 12/08/18 15:08 Comments Date of admission: 12/11/18 16:36 Primary care physician: Amanda Andino APN Consults: 12/08/18 18:00 Consult to Nutrition [CONS] Routine Comment: Consulting Provider: NUTRITION Reason for Dietary Consult: MST Score 12/11/18 17:22 Consult to Oncology Hematology [CONS] Routine Consulting Provider: Tab Campos Reason for Consult: pt with recent unintentional wt loss and weakness, t obacco abuse, anemia with low retic count and thrombocytopenia, ct chest and abd markedly abnormal multiple ways - see reports. Possible appearance of carcinomatosis. Time Notified: 17:26 Call Completed: No Discharging clinician: Tab Campos - Constitutional Vitals: Temp Pulse Resp BP Pulse Ox 97.0 F L 113 20 101/71 92 12/12/18 11:00 12/12/18 11:00 12/12/18 11:00 12/12/18 11:00 12/12/18 11:00 General appearance: Present: A&O X 3, pleasant, loss of weight - Head Head exam: Present: atraumatic, normocephalic - Eye Eye exam: Present: PERRL, conjuntiva pink, sclera anicteric Pupils: Present: PERRL - Neck Neck exam general surgery: Present: supple, trachea midline. Absent: lymphade nopathy - Respiratory Respiratory exam: Present: CTAB. Absent: accessory muscle use, rales, rhonchi, wheezes - Cardiovascular Cardiovascular exam: Present: RRR, +S1, +S2. Absent: diastolic murmur, gallop, rubs, systolic murmur - GI/Abdominal GI/Abdominal exam: Present: normal bowel sounds, soft, no peritoneal signs. Absent: distended, tenderness - Extremities Exam Extremities exam: Present: warm, radial pulses palpable and symmetrical. Absent: calf tenderness, cyanotic, pedal edema Additional comments: Right leg noted to be slightly larger than left. No actual edema noted. - Neurological Exam Neurological exam: Present: CN II-XII intact, oriented X3, no focal deficits. Absent: pronater drift, facial droop, speech deficit - Skin Skin exam: Present: dry, intact - Patient Status Disposition: Transfer Intermediate Care Fac Condition: Fair Functional capacity at discharge: independent ambulation Overall status at discharge: patient is not back to baseline - Discharge Instructions Follow Up With: Amanda Andino APN [Primary Care Provider] - - Diet and Activity Activity: increase activity as tolerated
[2018-12-12 16:34] VITALS: BP 98/67
== END 2018-12-12 17:50 | DRG 663 ==
LOC: EMEROOGRE 13:52 → INPGRE 13:52
PROVIDERS: ADMIT Internal Medicine; ATTEND Internal Medicine